=== PATIENT | male | born 1990 | race Caucasian/White ===

== ENCOUNTER 2020-06-27 13:12 | Outpatient (CLI) | payer OTHER, SELFPAY ==
--- NOTE | ~2020-06-27 | US_ITS ---
US scrotum doppler INDICATION: Right testicular pain after recent trauma TECHNIQUE: Testicular sonogram utilizing grayscale and color Doppler FINDINGS: The testes are normal in size and appearance. No focal lesions are seen. The right testes measures 4.1 x 3 x 3 cm centimeters, and the left testis measures 4.3 x 2.2 x 2.4 cm cm. There is nor mal vascular flow to both testes. The right and left epididymides appear normal. There is no varicocele or hydrocele. IMPRESSION: 1. NORMAL TESTICULAR ULTRASOUND. Reviewed, dictated and finalized at location A.
== END 2020-06-27 13:13 | disposition home or self-care (01) ==
LOC: CHSIMG 13:16
PROVIDERS: PCP Emergency Medicine; Visit Provider Emergency Medicine
DX: N50.811 Right testicular pain (principal)
CPT/HCPCS: 76870; 93976